=== PATIENT | male | born 1960 | race Caucasian/White ===

== ENCOUNTER 2021-07-10 08:19 | Inpatient (IN) | payer MEDICAID ==
[~2021-07-10] VITALS: Ht 177.8 cm; Wt 109.0 kg
[2021-07-10] VITALS (33 sets, daily range): BP systolic 69–127; BP diastolic 56–88
[2021-07-10] MEDS ORDERED: normal saline 1000ml 1,000 ML IV PRN (08:55)
[2021-07-10 09:26] LABS: BASOPHILS % (AUTO) 0.8 % (0-1); EOSINOPHILS % (AUTO) 0.4 % (0-6); HEMATOCRIT 44.4 % (42.0-52.0); HEMOGLOBIN 14.8 g/dl (14.0-17.9); LYMPHOCYTES # (AUTO) 0.9 X10'3 (1.1-4.8); LYMPHOCYTES % (AUTO) 15.9 % (21-51); MEAN CORPUSCULAR HEMOGLOBIN 34.6 PG (27.0-31.0); MEAN CORPUSCULAR HGB CONC 33.4 g/dL (33.0-36.5); MEAN CORPUSCULAR VOLUME 103.8 FL (78-98); MEAN PLATELET VOLUME 9.6 FL (7.4-10.4); MONOCYTES # (AUTO) 0.6 X10'3 (0-0.9); MONOCYTES % (AUTO) 10.3 % (2-12); NEUTROPHILS # (AUTO) 4.2 X10'3 (1.8-7.7); NEUTROPHILS % (AUTO) 72.6 % (42-75); PLATELET COUNT 181 X10'3 (140-440); RED BLOOD COUNT 4.27 X10'6 (4.70-6.10); RED CELL DISTRIBUTION WIDTH 14.1 % (11.5-14.5); WHITE BLOOD COUNT 5.8 X10'3 (4.5-11.0)
[2021-07-10] MEDS ORDERED: GLIM4TAB PO (10:13)
[2021-07-10] MEDS ORDERED: INSU100I31 SQ (10:13)
[2021-07-10] MEDS ORDERED: GEMF600T89 PO (10:13)
[2021-07-10] MEDS ORDERED: PIOG15TA70 PO (10:13)
[2021-07-10] MEDS ORDERED: MV-M1TAB19 PO (10:13)
[2021-07-10] MEDS ORDERED: ERTU5TAB PO (10:13)
[2021-07-10] MEDS ORDERED: ATOR40TA71 PO (10:13)
[2021-07-10] MEDS ORDERED: OMEP20CA16 PO (10:13)
[2021-07-10] MEDS ORDERED: ZINC50TA67 PO (10:13)
[2021-07-10] MEDS ORDERED: LISI-643 PO (10:13)
[2021-07-10] MEDS ORDERED: midazolam 1 mg/ML 2ml injection ONE (11:18)
[2021-07-10] MEDS ORDERED: LIDOcaine 1% (10mg/ml) 2ml vial ONE ×2 (11:18→12:45)
[2021-07-10] MEDS ORDERED: fentaNYL/PF 50MCG/1 ML 2ML syringe ONE (11:19)
[2021-07-10] MEDS ORDERED: oxyCODONE IR 5mg (immed. release) tablet PO ONE (13:45)
--- NOTE | 2021-07-10 13:45 | NUR ---
Dr. Conner in to see pt and write admit orders.
--- NOTE | 2021-07-10 13:45 | NUR ---
Dr. Borrero in to see pt and write admit orders. Addendum: 07/10/21 at 1746 by John Paul Garcia RN Amended: Links added.
--- NOTE | 2021-07-10 14:00 | NUR ---
Dr. Conner in to see pt and to give admit orders.
--- NOTE | 2021-07-10 14:15 | NUR ---
Dr. Gonsales in to see pt and write admit orders. Addendum: 07/10/21 at 1746 by John Paul Garcia RN Amended: Links added.
[2021-07-10] MEDS ORDERED: potassium Cl 20 mEq SR tablet PO PRN ×2 (14:20)
[2021-07-10] MEDS ORDERED: magnesium 2GM in 50ml NS 50 ML IV PRN (14:20)
[2021-07-10] MEDS ORDERED: normal saline 1000ml 1,000 ML IV SCH (14:20)
[2021-07-10] MEDS ORDERED: acetaminophen 325mg tablet PO PRN ×2 (14:20)
[2021-07-10] MEDS ORDERED: HYDROmorphone/PF 0.2 MG/ML SYRINGE IV PRN (14:20)
[2021-07-10] MEDS ORDERED: magnesium 4gm in 100ml NS 100 ML IV PRN (14:20)
[2021-07-10] MEDS ORDERED: morphine 2 MG/ML inj. syringe IV PRN ×2 (14:20)
[2021-07-10] MEDS ORDERED: HYDROmorphone inj. 0.5 MG/0.5 ML DISP.SYRIN IV PRN (14:20)
[2021-07-10] MEDS ORDERED: glucagon, human recombinant 1mg kit SUBCUT PRN (14:20)
[2021-07-10] MEDS ORDERED: HYDROcodone/acetaminophen 5mg/325mg tablet PO PRN (14:20)
[2021-07-10] MEDS ORDERED: potassium CL 10mEq/100ml bag 100 ML IV PRN (14:20)
[2021-07-10] MEDS ORDERED: magnesium Cl slow-release 64mg tablet PO PRN (14:20)
[2021-07-10] MEDS ORDERED: dextrose 50%-water 50ml dispensing syringe IV PRN ×2 (14:20)
[2021-07-10] MEDS ORDERED: MESSAGE TO PHARMACY PO ONE (14:20)
[2021-07-10] MEDS ORDERED: insulin Lispro (HumaLOG) vial - multi-dose SQ SCH (14:20)
[2021-07-10] MEDS ORDERED: ondansetron/PF 4mg/2ml inj IV PRN (14:20)
[2021-07-10] MEDS ORDERED: DEXTROSE 15 GM of carb/4 tabs (each vial/BOTTLE has 4 tablets) PO PRN ×2 (14:20)
[2021-07-10] MEDS ORDERED: CefTRIAXone 2gm/D5W 50ml BAG 50 ML IV SCH (14:27)
--- NOTE | 2021-07-10 15:00 | NUR ---
Dr. Gonsales in to see pt and write orders.
--- NOTE | 2021-07-10 17:10 | NUR ---
Phone report given to Geovanna SOLIS and chance given to ask questions. Pt transferred via gurney with [facility] attached to chest tube on water seal. Addendum: 07/10/21 at 1749 by John Paul Garcia RN Amended: Links added.
--- NOTE | 2021-07-10 17:51 | NUR ---
chest tube to low suction, see assessment. Addendum: 07/10/21 at 1751 by Geovanna Brownlee RN Amended: Links added.
--- NOTE | 2021-07-10 18:06 | NUR ---
Called pharmacy for rocephin, and admitting to move patient to [facility]
--- NOTE | 2021-07-10 18:13 | NUR ---
Problems reprioritized. Patient report given, questions answered & plan of care reviewed with Leda SOLIS.
[2021-07-10] MEDS: HYDROcodone/acetaminophen 10/325mg tab PO PRN (19:41)
[2021-07-10] MEDS: heparin, porcine 5000 units/ml vial SQ SCH (19:41)
[2021-07-10] MEDS: gemfibrozil 600mg tablet PO SCH (19:41)
[2021-07-10] MEDS: pioglitazone 15mg tablet PO SCH (20:00)
[2021-07-10] MEDS: K and/or MAG REPLACEMENT MC SCH (20:00)
[2021-07-10] MEDS ORDERED: temazepam 15mg capsule PO PRN (21:00)
[2021-07-10] MEDS ORDERED: insulin glargine (Lantus) pen - multi-dose SQ SCH (21:00)
[2021-07-11 02:00] VITALS: BP 136/77
[2021-07-11] MEDS: HYDROcodone/acetaminophen 10/325mg tab PO PRN (05:27)
[2021-07-11 05:59] LABS: EOSINOPHILS % (AUTO) 0.6 % (0-6); HEMATOCRIT 39.5 % (42.0-52.0); HEMOGLOBIN 13.2 g/dl (14.0-17.9); LYMPHOCYTES # (AUTO) 0.7 X10'3 (1.1-4.8); MEAN CORPUSCULAR HEMOGLOBIN 34.8 PG (27.0-31.0); MEAN CORPUSCULAR HGB CONC 33.5 g/dL (33.0-36.5); MEAN CORPUSCULAR VOLUME 104.1 FL (78-98); MEAN PLATELET VOLUME 9.7 FL (7.4-10.4); MONOCYTES # (AUTO) 0.4 X10'3 (0-0.9); NEUTROPHILS # (AUTO) 2.9 X10'3 (1.8-7.7); NEUTROPHILS % (AUTO) 70.4 % (42-75); PLATELET COUNT 120 X10'3 (140-440); RED BLOOD COUNT 3.79 X10'6 (4.70-6.10); WHITE BLOOD COUNT 4.1 X10'3 (4.5-11.0)
[2021-07-11 06:00] VITALS: BP 121/84
[2021-07-11 06:31] LABS: ALANINE AMINOTRANSFERASE 50 U/L (12-78); ALBUMIN 2.9 G/DL (3.4-5.0); ALBUMIN/GLOBULIN RATIO 0.7 (1.1-1.5); ALKALINE PHOSPHATASE 269 IU/L (46-116); ANION GAP 7 (8-16); ASPARTATE AMINO TRANSFERASE 81 U/L (10-37); BILIRUBIN,TOTAL 1.3 MG/DL (0.1-1.0); BLOOD UREA NITROGEN 17 MG/DL (7-18); BUN/CREATININE RATIO 26.6 (5.4-32.0); CALCIUM 8.3 MG/DL (8.5-10.1); CHLORIDE 104 MMOL/L (99-107); CREATININE 0.64 MG/DL (0.60-1.10); GLUCOSE 95 MG/DL (70-104); POTASSIUM 3.9 MMOL/L (3.5-5.1); SODIUM 136 MMOL/L (135-145); TOTAL CARBON DIOXIDE 24.8 MMOL/L (24-32); TOTAL PROTEIN 7.2 G/DL (6.4-8.2); eGFR > 90 ML/MIN
[2021-07-11] MEDS: pioglitazone 15mg tablet PO SCH (07:57)
[2021-07-11] MEDS ORDERED: insulin glargine (Lantus) pen - multi-dose SQ SCH (08:00)
[2021-07-11] MEDS ORDERED: multivitamins, therapeutics tablet PO SCH (08:00)
[2021-07-11] MEDS ORDERED: lisinopril 10 MG tablet PO SCH (08:00)
[2021-07-11] MEDS ORDERED: CefTRIAXone 2gm/NS 100ml IVPB 100 ML IV SCH (08:00)
[2021-07-11] MEDS: K and/or MAG REPLACEMENT MC SCH (08:00)
[2021-07-11] MEDS ORDERED: atorvastatin 20mg tablet PO SCH (08:00)
[2021-07-11] MEDS ORDERED: pantoprazole 40mg Tablet.DR PO SCH (08:00)
[2021-07-11] MEDS ORDERED: cefTRIAXone 1g/NS 100ml IVPB 100 ML IV SCH (08:00)
[2021-07-11] MEDS: heparin, porcine 5000 units/ml vial SQ SCH (08:00)
[2021-07-11] MEDS: gemfibrozil 600mg tablet PO SCH (08:01)
--- NOTE | 2021-07-11 09:44 | NUR ---
PAGE SENT PAGER ID: [phone] MESSAGE: [id number], KINA OZUNA, PT NEEDS ORDER FOR CHEST TUBE. THANK YOU, CARSON. X [phone]
[2021-07-11] MEDS ORDERED: LEVO500T90 PO (10:59)
[2021-07-11 11:00] VITALS: BP 102/84
--- NOTE | 2021-07-11 13:53 | NUR ---
PAGE SENT PAGER ID: [phone] MESSAGE: [phone], KINA OZUNA, NO FINDINGS ON SECOND CXY. PT'S 02 >90 UPON AMBULATION. THANK YOU, CARSON [id number]
[2021-07-11 15:00] VITALS: BP 108/78
--- NOTE | 2021-07-11 15:38 | NUR ---
PT STABLE FOR DISCHARGE PER MD. DISCHARGE AND FOLLOW UP INSTRUCTIONS REVIEWED WITH PT. PIV REMOVED WITH TIP INTACT. PT DISCHARGED FROM TELEMONITORING. PT WAS TRANSPORTED TO PRIVATE VEHICLE BY HOSPITAL STAFF. PT WAS DISCHARGED TO HOME.
== END 2021-07-11 17:57 | disposition home or self-care (01) | DRG 144 ==
LOC: SSTAY O 08:19 → MED 3N 14:23 → SSTAY O 14:23 → CMPBEDREQ 21:27
PROVIDERS: ADMIT Internal Medicine; ATTEND Preventive Medicine Aerospace Medicine
PROC: 0W9930Z Drainage of Right Pleural Cavity with Drainage Device, Percutaneous Approach (ICD-10-PCS; principal; 2021-07-10)
DX: R91.1 Solitary pulmonary nodule (principal); J93.9 Pneumothorax, unspecified; K76.0 Fatty (change of) liver, not elsewhere classified; E11.9 Type 2 diabetes mellitus without complications; J44.9 Chronic obstructive pulmonary disease, unspecified; E78.5 Hyperlipidemia, unspecified; F12.90 Cannabis use, unspecified, uncomplicated; I10 Essential (primary) hypertension; K21.9 Gastro-esophageal reflux disease without esophagitis; K76.9 Liver disease, unspecified; Z87.891 Personal history of nicotine dependence
CPT/HCPCS: 32408; 32557; 36415; 71045; 77012; 80053; 82948; 83036; 83605; 85025; 87040; 93306; 99152; 99153; G0378; J0696; J1644; J1815; J2250; J3010; J3490; J7030